=== PATIENT | female | born 1995 | race Caucasian/White ===

== ENCOUNTER 2019-12-23 23:42 | Emergency (ER) | payer MEDICAID, SELFPAY ==
[2019-12-23 23:45] VITALS: BP 153/69; PULSE 70; RESP 16; TEMP 36.4; O2SAT 98; BMI 25.8
--- NOTE | 2019-12-23 23:45 | CTR_ITS ---
PROCEDURE INFORMATION: Exam: CT Abdomen And Pelvis With Contrast Exam date and time: 12/23/2019 1:03 AM Age: 24 years old Clinical indication: Abdominal pain; Localized; Right lower quadrant (rlq); Additional info: Abd pain TECHNIQUE: Imaging protocol: Computed tomography of the abdomen and pelvis with intravenous contrast. Radiation optimization: All CT scans at this facility use at least one of these dose optimization techniques: automated exposure control; mA and/or kV adjustment per patient size (includes targeted exams where dose is matched to clinical indication); or iterative reconstruction. Contrast material: VISI; Contrast volume: 95 ml; Contrast route: INTRAVENOUS (IV); COMPARISON: No relevant prior studies available. RADIATION DOSE METRICS: Total DLP (mGy-cm): 760.75 FINDINGS: Lungs: The lung bases are clear. Liver: Unremarkable. Gallbladder and bile ducts: No definite gallbladder abnormality by CT. No biliary tree dilation. Pancreas: Unremarkable. Spleen: Unremarkable. Adrenals: Unremarkable. Kidneys and ureters: Small right intrarenal calculus. Delayed concentration of contrast by the right kidney. Mild right periureteric stranding. Moderate to severe right hydronephrosis and hydroureter. There is a 5 mm distal right ureteral calculus, at the UVJ. 15 mm likely benign cyst in the medial upper left kidney. The left kidney otherwise appears essentially unremarkable. Stomach and bowel: There are no CT findings to strongly suggest diverticulitis. Appendix: The appendix is visualized and appears normal. Intraperitoneal space: No free air, generalized ascites, or bowel distention. Vasculature: No evidence for abdominal aortic aneurysm. Lymph nodes: No retroperitoneal adenopathy. Urinary bladder: The urinary bladder otherwise appears essentially unremarkable by CT. Reproductive: The right ovary contains a 23 mm small cyst versus dominant follicle. Significance uncertain due to relatively small size. Small amount of cul-de-sac fluid. Bones/joints: Mild thoracolumbar scoliosis. Soft tissues: No significant acute finding. CT/CT abdomen pelvis w con* [id number] IMPRESSION: 1. 5 mm distal right ureteral calculus, at the UVJ. 2. Moderate to severe right hydronephrosis and hydroureter. 3. Normal appendix. 4. The right ovary contains a 23 mm small cyst versus dominant follicle. Significance uncertain due to relatively small size. Small amount of cul-de-sac fluid. 5. Other findings discussed above. COMMENTS: Consistent with the [employer]'s Incidental Findings Committee white paper (J Am Merlyn Radiol 2018): Any incidental renal lesion less than 1 cm or classified as too small to characterize, or any incidental cystic renal lesion characterized as simple-appearing, is likely benign. No follow-up imaging is recommended for these lesions per consensus recommendations based on imaging criteria. Radiation Dose CTDIVOL = (mGy): DLP = 760.75 (mGy-cm)
--- NOTE | 2019-12-23 23:46 | W.ED.ABDPA2 ---
HPI - Abdominal Pain General: Chief Complaint: Abdominal Pain Stated Complaint: ABD PAIN Time Seen by Provider: 12/23/19 23:42 Source: patient and EMS Mode of arrival: EMS Limitations: no limitations History of Present Illness: HPI narrative: 24-year-old female who presents with abdominal pain. She started having right lower quadrant pain that radiated to her back started 4 hours ago. States her pain was severe in nature and she had some nausea and vomiting. She denies any fevers. She denies any worsening or improving factors. Patient was given Zofran in route along with 4 mg of Dilaudid and she states that has helped her pain is now 3 out of 10. MD elicited complaint: abdominal pain Onset (ago): hour(s) Pain Consistency: constant Associated Symptoms: Reports nausea and vomiting; Denies chills, dysuria and fever(s) Review of Systems Const: Denies: fever(s), chills, body aches or change in appetite Eyes: Denies: blurry vision or eye discomfort ENMT: Denies: throat pain or dental pain Card: Denies: chest pain Resp: Denies: dyspnea GI: Reports: abdominal pain, nausea and vomiting : Denies: dysuria Musc: Denies: neck pain or back pain Skin/Breast: Denies: rash Neuro: Denies: headache(s) Psych: Denies: depression Jerome/Lymph: Denies: easy bruising All/Imm: Denies: urticaria Physical Exam Const: COMMON NORMALS: no acute distress, patient oriented x3 and healthy appearing HENMT: COMMON NORMALS: normocephalic and atraumatic HEAD & SCALP: normocephalic and atraumatic Eye: COMMON NORMALS: Equal, round and reactive pupils present and EOMs intact bilaterally PUPIL: Yes Equal, round and reactive pupils present Neck/C-Spine: COMMON NORMALS: full ROM and supple Chest: COMMONS NORMALS: normal inspection of the chest and normal palpation of entire chest wall Resp: COMMON NORMALS: normal respiratory effort, No retractions, No use of accessory muscles and clear to auscultation bilaterally AUSCULTATION: clear to auscultation bilaterally Cardio: COMMON NORMALS: regular rate, regular rhythm and No murmurs present (Cardio) RATE: regular rate RHYTHM: regular rhythm GI: COMMON NORMALS: Normal to inspection, nondistended, normoactive bowel sounds present, Soft to palpation and no masses PALPATION: Yes Soft to palpation OTHER: Lower abdominal tenderness Extremity: COMMON NORMALS: normal to inspection and full ROM Neuro: COMMON NORMALS: patient oriented x3, moves all extremities and no focal motor deficits Psych: COMMON NORMALS: mental status grossly normal, Normal thought process present and cooperative THOUGHT PROCESS: Normal thought process present Skin: COMMON NORMALS: no rashes or lesions noted and no wounds GENERAL SKIN EXAM: no rashes or lesions noted Course Vital Signs: Vital signs: Vital Signs Temperature 97.5 F L 12/23/19 23:45 Pulse Rate 68 12/24/19 01:34 Respiratory Rate 16 12/24/19 01:34 Blood Pressure 138/84 12/24/19 01:34 Pulse Oximetry 100 12/24/19 01:34 MDM - Abdominal Pain MDM Narrative: Medical decision making narrative: Ebony presents here with flank pain abdominal pain is found to have a kidney stone. Her pain is much improved here. We will prescribe her pain meds along with nausea meds and she is to follow-up with Dr. Jorgensen. She is to return if worsening. She understands agrees to plan. We will send her home with a urine strainer and she is to strain her urine. Lab Data: Labs: Lab Results 12/23/19 12/23/19 12/23/19 Range/Units 00:00 00:00 23:45 WBC 11.6 H (4.0-10.0) 10^3/ uL RBC 4.62 (4.1-5.3) 10^6/u L Hgb 11.6 (11.5-15.3) g/dL Hct 36.4 L (37.0-47.0) % MCV 78.8 L (81-99) fL MCH 25.1 L (28.0-34.0) pg MCHC 31.9 (30.0-36.0) g/dL RDW 15.6 H (12.1-15.1) % Plt Count 332 (130-400) 10^3/c mm MPV 10.6 H (7.4-10.4) fL Neut % (Auto) 56.7 % Lymph % (Auto) 35.5 % Haralson % (Auto) 6.2 % Eos % (Auto) 0.9 % Baso % (Auto) 0.4 % Neut # (Auto) 6.55 (1.8-7.7) 10^3/u L Lymph # (Auto) 4.1 (0.8-4.8) 10^3/u L Haralson # (Auto) 0.7 (0.2-0.9) 10^3/u L Eos # (Auto) 0.1 (0.0-0.8) 10^3/u L Baso # (Auto) 0.1 (0.0-0.1) 10^3/u L Nucleated RBC % (a uto) 0 % Nucleated RBCs # 0.0 /100WBC Sodium 138 (136-145) mmol/L Potassium 3.4 L (3.5-5.1) mmol/L Chloride 102 (98-107) mmol/L Carbon Dioxide 22 (22-29) mmol/L Anion Gap 17.4 (5-19) BUN 8 (6-20) mg/dL Creatinine 0.8 (0.5-0.9) mg/dL GFR Calculation 89.7 L (90-130) mL/min Glucose 98 (65-115) mg/dL Calculated Osmolal ity 284 L (285-295) mOsm/k g Calcium 10.1 (8.5-10.5) mg/dL Total Bilirubin 0.3 (0.15-1.2) mg/dL AST 18 (0-32) U/L ALT 12 (0-33) U/L Alkaline Phosphata se 98 (35-105) IU/L Total Protein 7.3 (6.6-8.7) g/dL Albumin 4.3 (3.5-5.2) g/dL Globulin 3.0 (1.3-4.6) g/dL Lipase 22 (13-60) U/L HCG, Qual Negative (Negative) Urine Color (Yellow) Urine Appearance (CLEAR) Urine pH (5-7) Ur Specific Gravit y (1.005-1.030) Urine Protein (Negative) Urine Glucose (UA) (Normal) Urine Ketones (Negative) Urine Blood (Negative) Urine Nitrate (Negative) Urine Bilirubin (Negative) Urine Urobilinogen (Negative) mg/dL Ur Leukocyte Vidya ase (Negative) Urine RBC (0-2) /hpf Urine WBC (0-5) /hpf Ur Squamous Epith Cells (0-5) /hpf Calcium Oxalate Cr ystal /hpf Amorphous Sediment Urine Bacteria (NONE) /hpf Urine Mucus /hpf Urine Yeast /hpf 12/24/19 Range/Units 00:01 WBC (4.0-10.0) 10^3/ uL RBC (4.1-5.3) 10^6/u L Hgb (11.5-15.3) g/dL Hct (37.0-47.0) % MCV (81-99) fL MCH (28.0-34.0) pg MCHC (30.0-36.0) g/dL RDW (12.1-15.1) % Plt Count (130-400) 10^3/c mm MPV (7.4-10.4) fL Neut % (Auto) % Lymph % (Auto) % Haralson % (Auto) % Eos % (Auto) % Baso % (Auto) % Neut # (Auto) (1.8-7.7) 10^3/u L Lymph # (Auto) (0.8-4.8) 10^3/u L Haralson # (Auto) (0.2-0.9) 10^3/u L Eos # (Auto) (0.0-0.8) 10^3/u L Baso # (Auto) (0.0-0.1) 10^3/u L Nucleated RBC % (a uto) % Nucleated RBCs # /100WBC Sodium (136-145) mmol/L Potassium (3.5-5.1) mmol/L Chloride (98-107) mmol/L Carbon Dioxide (22-29) mmol/L Anion Gap (5-19) BUN (6-20) mg/dL Creatinine (0.5-0.9) mg/dL GFR Calculation (90-130) mL/min Glucose (65-115) mg/dL Calculated Osmolal ity (285-295) mOsm/k g Calcium (8.5-10.5) mg/dL Total Bilirubin (0.15-1.2) mg/dL AST (0-32) U/L ALT (0-33) U/L Alkaline Phosphata se (35-105) IU/L Total Protein (6.6-8.7) g/dL Albumin (3.5-5.2) g/dL Globulin (1.3-4.6) g/dL Lipase (13-60) U/L HCG, Qual (Negative) Urine Color Yellow (Yellow) Urine Appearance Clear (CLEAR) Urine pH 5.0 (5-7) Ur Specific Gravit y 1.030 (1.005-1.030) Urine Protein Neg (Negative) Urine Glucose (UA) Norm (Normal) Urine Ketones 2+ H (Negative) Urine Blood 3+ H (Negative) Urine Nitrate Negative (Negative) Urine Bilirubin Neg (Negative) Urine Urobilinogen Norm (Negative) mg/dL Ur Leukocyte Vidya ase Negative (Negative) Urine RBC 15-25 H (0-2) /hpf Urine WBC 5-10 H (0-5) /hpf Ur Squamous Epith Cells 0-4 H (0-5) /hpf Calcium Oxalate Cr ystal 0-4 H /hpf Amorphous Sediment Not Reportable Urine Bacteria 2+ H (NONE) /hpf Urine Mucus 2+ /hpf Urine Yeast Trace /hpf Imaging Data ^: CT Abd/Pel: Attestation: I personally reviewed and interpreted this imaging study as follows: Radiologist's impression: [place] [address] CT Scan Report Signed Patient: Ebony Glover Unit #: [id number] : 1995 Age/Sex: 24 / F ADM Date: 12/23/19 Loc: ER Room/Bed: Attending Dr: Ordering Provider/Ordering MD: Austin Bush MD Date of Service: 12/23/19 Procedure(s): CT abdomen pelvis w con* [id number] Accession Number(s): [id number] Report Number: [id number] PROCEDURE INFORMATION: Exam: CT Abdomen And Pelvis With Contrast Exam date and time: 12/23/2019 1:03 AM Age: 24 years old Clinical indication: Abdominal pain; Localized; Right lower quadrant (rlq); Additional info: Abd pain TECHNIQUE: Imaging protocol: Computed tomography of the abdomen and pelvis with intravenous contrast. Radiation optimization: All CT scans at this facility use at least one of these dose optimization techniques: automated exposure control; mA and/or kV adjustment per patient size (includes targeted exams where dose is matched to clinical indication); or iterative reconstruction. Contrast material: VISI; Contrast volume: 95 ml; Contrast route: INTRAVENOUS (IV); COMPARISON: No relevant prior studies available. RADIATION DOSE METRICS: Total DLP (mGy-cm): 760.75 FINDINGS: Lungs: The lung bases are clear. Liver: Unremarkable. Gallbladder and bile ducts: No definite gallbladder abnormality by CT. No biliary tree dilation. Pancreas: Unremarkable. Spleen: Unremarkable. Adrenals: Unremarkable. Kidneys and ureters: Small right intrarenal calculus. Delayed concentration of contrast by the right kidney. Mild right periureteric stranding. Moderate to severe right hydronephrosis and hydroureter. There is a 5 mm distal right ureteral calculus, at the UVJ. 15 mm likely benign cyst in the medial upper left kidney. The left kidney otherwise appears essentially unremarkable. Stomach and bowel: There are no CT findings to strongly suggest diverticulitis. Appendix: The appendix is visualized and appears normal. Intraperitoneal space: No free air, generalized ascites, or bowel distention. Vasculature: No evidence for abdominal aortic aneurysm. Lymph nodes: No retroperitoneal adenopathy. Urinary bladder: The urinary bladder otherwise appears essentially unremarkable by CT. Reproductive: The right ovary contains a 23 mm small cyst versus dominant follicle. Significance uncertain due to relatively small size. Small amount of cul-de-sac fluid. Bones/joints: Mild thoracolumbar scoliosis. Soft tissues: No significant acute finding. CT/CT abdomen pelvis w con* [id number] IMPRESSION: 1. 5 mm distal right ureteral calculus, at the UVJ. 2. Moderate to severe right hydronephrosis and hydroureter. 3. Normal appendix. 4. The right ovary contains a 23 mm small cyst versus dominant follicle. Significance uncertain due to relatively small size. Small amount of cul-de-sac fluid. 5. Other findings discussed above. Discharge Plan Discharge Patient Disposition: Home Clinical Impression: Calculus of kidney Condition: Stable Prescriptions: [place] 5-325 mg tablet 1 tab PO Q6H PRN (Reason: pain) Qty: 14 RF: 0 ondansetron 4 mg tablet,disintegrating 4 mg PO Q6H PRN (Reason: nausea and vomiting) Qty: 14 RF: 0 Discharge Orders: Discharge Order (Routine); Ordered 12/24/19 Ordered By: Austin Bush Referrals: Richie Jorgensen MD [Physician] - 1-3 days Michelle Thompson FNP [Primary Care Provider] - Discharge Diet: Advance as tolerated Discharge Activity: Resume usual activity Patient Instructions: Kidney Stones (ED), How to Strain Your Urine (ED) Coding Level of Care Code ED Internal Controls Consultant for Heatherg Fwd Exam Comprehensive
[2019-12-24 00:39] LABS: HCG, Serum Qual Negative (Negative)
[2019-12-24 00:44] LABS: Alanine Aminotransferase 12 U/L (0-33); Albumin Level 4.3 g/dL (3.5-5.2); Alkaline Phosphatase 98 IU/L (35-105); Anion Gap 17.4 (5-19); Aspartate Amino Transferase 18 U/L (0-32); Blood Urea Nitrogen 8 mg/dL (6-20); Calcium 10.1 mg/dL (8.5-10.5); Carbon Dioxide 22 mmol/L (22-29); Chloride 102 mmol/L (98-107); Glomerular Filtration Rate 89.7 mL/min (90-130); Glucose 98 mg/dL (65-115); Lipase 22 U/L (13-60); Osmolality Calculated 284 mOsm/kg (285-295); Potassium 3.4 mmol/L (3.5-5.1); Sodium 138 mmol/L (136-145); Total Bilirubin 0.3 mg/dL (0.15-1.2); Total Protein 7.3 g/dL (6.6-8.7)
[2019-12-24 00:46] LABS: Bilirubin Urine Neg (Negative); Blood Urine 3+ (Negative); Glucose Urine UA Norm (Normal); Ketones Urine 2+ (Negative); Leukocyte Esterase Urine Negative (Negative); Nitrate Urine Negative (Negative); Protein Urine Neg (Negative); Urine Appearance Clear (CLEAR); Urine Color Yellow (Yellow); Urobilinogen Urine Norm (Negative)
[2019-12-24 00:47] LABS: Add Urine Microscopic? YES
[2019-12-24 00:47] LABS: Basophils # 0.1 10^3/uL (0.0-0.1); Basophils % 0.4 %; Eosinophils # 0.1 10^3/uL (0.0-0.8); Eosinophils % 0.9 %; Hematocrit 36.4 % (37.0-47.0); Hemoglobin 11.6 g/dL (11.5-15.3); Lymphocytes # 4.1 10^3/uL (0.8-4.8); Lymphocytes % 35.5 %; Mean Corpuscular HGB Conc 31.9 g/dL (30.0-36.0); Mean Corpuscular Hemoglobin 25.1 pg (28.0-34.0); Mean Corpuscular Volume 78.8 fL (81-99); Mean Platelet Volume 10.6 fL (7.4-10.4); Monocytes # 0.7 10^3/uL (0.2-0.9); Monocytes % 6.2 %; Neutrophils # 6.55 10^3/uL (1.8-7.7); Neutrophils % 56.7 %; Nucleated Red Blood Cells % 0 %; Platelet Count 332 10^3/cmm (130-400); Red Blood Count 4.62 10^6/uL (4.1-5.3); Red Cell Distribution Width 15.6 % (12.1-15.1); White Blood Count 11.6 10^3/uL (4.0-10.0)
[2019-12-24 00:51] VITALS: BP 114/67; PULSE 65; RESP 18; O2SAT 98
[2019-12-24 00:53] LABS: RBC Urine 15-25 /hpf (0-2)
[2019-12-24 00:54] LABS: Bacteria Urine 2+ /hpf; Calcium Oxalate Crystals Urine 0-4 /hpf; Mucus Urine 2+ /hpf; Squamous Epithelial Cell Urine 0-4 /hpf (0-5)
[2019-12-24 00:55] LABS: Add Urine Culture? Yes
[2019-12-24] MEDS: iodixanol 320 mg/mL 100mL Btl IV (01:14)
[2019-12-24] MEDS: ondansetron 2 mg/ML SDV 2 mL 4 MG IVP (01:30)
[2019-12-24] MEDS: ketorolac 30 mg/mL INJ IVP (01:31)
[2019-12-24 01:32] VITALS: RESP 16; O2SAT 100
[2019-12-24] MEDS: HYDROmorphone 1 mg/mL INJ 1 mL IVP (01:32)
[2019-12-24 01:34] VITALS: BP 138/84; PULSE 68; RESP 16; O2SAT 100
[2019-12-24] MEDS: HYDROcodone-acetaminophen 5-325 mg Tablet 1 TAB PO (02:36)
[2019-12-24 02:37] VITALS: BP 111/52; PULSE 74; O2SAT 97
--- NOTE | 2019-12-24 10:07 | DCPLANNER ---
Addendum entered by Violeta Fuentes 12/24/19 14:34: Migdalia from Dr. Mabry office, called case loader operator back stating that when clinic called patient to schedule a followup appointment that patient stated that she did not have insurance at this time, and does not want to have an appointment scheduled at this time. Original Note: wind plant manager had message to schedule a follow up appointment with Dr. Jorgensen. wind plant manager called the office of Dr. Jorgensen, spoke with Migdalia, gave clinic patients information. wind plant manager was told that patients information would be printed and reviewed. Clinic will call patient with appointment information.
== END 2019-12-24 02:37 | disposition home or self-care (01) ==
PROVIDERS: Emergency Provider Emergency Medicine; Family Provider Nurse Practitioner; PCP Nurse Practitioner
DX: N20.0 Calculus of kidney (principal)
CPT/HCPCS: 12345; 74177; 80053; 81001; 83690; 84703; 85025; 87086; 96374; 96375; 99283; 99284; J1170; J1885; J2405; Q9967

== ENCOUNTER 2019-12-25 13:08 | Outpatient (CLI) | payer MEDICAID, SELFPAY ==
--- NOTE | 2019-12-25 13:15 | XRR_ITS ---
PROCEDURE INFORMATION: Exam: XR Abdomen, 1 View Exam date and time: 12/25/2019 1:12 PM Age: 24 years old Clinical indication: Condition or disease; Kidney or ureter condition; Calculus (stone) in kidney; Additional info: Calculus of kidney TECHNIQUE: Imaging protocol: XR of the abdomen. Views: Frontal supine view of the abdomen. 1 View. COMPARISON: CT abdomen pelvis w con* [id number] 12/24/2019 1:07 AM FINDINGS: Gastrointestinal tract: Unremarkable. No bowel dilation. Organs: Stable position right distal ureteral calculus. Bones/joints: Mild lumbar levoscoliosis. XR/XR KUB [id number] IMPRESSION: Stable position right distal ureteral calculus.
== END 2019-12-25 13:09 | disposition home or self-care (01) ==
LOC: RAD 13:11
PROVIDERS: PCP Nurse Practitioner; Visit Provider Nurse Practitioner Family
DX: N20.0 Calculus of kidney (principal); N20.1 Calculus of ureter
CPT/HCPCS: 74018; 81003

== ENCOUNTER 2020-01-02 10:05 | Outpatient (CLI) | payer MEDICAID, SELFPAY ==
--- NOTE | 2020-01-02 09:45 | XR_ITS ---
WS: [id number] Exam: XR KUB [id number] Date/Time of Exam: 01/02/2020 9:45 AM Reason For Exam: URETERAL STONE Comparison 12/25/2019. There is a 3 mm calcification superimposing the right renal silhouette that could be a renal stone. 2 small right pelvic calcifications are noted which are nonspecific. No sign of bowel obstruction or f ree air. Visualized organ margins are intact. Mild levoscoliosis of the lumbar spine. XR/XR KUB [id number] IMPRESSION: 1. 3 mm calcification in the superimposing the right renal silhouette that coul d represent a stone. 2. Nonspecific right pelvic calcifications. 3. No acute abdominal process.
== END 2020-01-02 10:06 | disposition home or self-care (01) ==
LOC: RAD 10:09
PROVIDERS: PCP Nurse Practitioner; Visit Provider Nurse Practitioner Family
DX: N20.1 Calculus of ureter (principal)
CPT/HCPCS: 74018; 81003

== ENCOUNTER 2020-01-16 10:27 | Outpatient (CLI) | payer MEDICAID, SELFPAY ==
--- NOTE | 2020-01-16 10:00 | XR_ITS ---
WS: [id number] KUB, 01/16/2020 Clinical Data: URETERAL CALCULUS Comparison: KUB, 01/02/2020. Findings: No abnormal intraabdominal masses or calcifications are seen. There is no dilatated small bowel or ev idence of obstruction. There was a calcification on the right side of the true pelvis which is no longer present. There is a small phlebolith also on the right side of the true pelvis. XR/XR KUB [id number] Impression: The distal right ureteral calculus may have passed.
== END 2020-01-16 10:28 | disposition home or self-care (01) ==
LOC: RAD 10:30
PROVIDERS: PCP Nurse Practitioner; Visit Provider Urology
DX: N20.1 Calculus of ureter (principal)
CPT/HCPCS: 74018